=== PATIENT | male | born 1955 | race Caucasian/White ===

== ENCOUNTER 2024-01-20 11:18 | Emergency (ER) | payer OTHER ==
[2024-01-20 12:14] VITALS: BP 156/97; PULSE 88; RESP 16; TEMP 98.2; BMI 24.7
== END 2024-01-20 12:38 | disposition home or self-care (01) ==
LOC: FER 11:18
DX: Z04.3 Encounter for examination and observation following other accident (principal)
CPT/HCPCS: 99282-25